=== PATIENT | female | born 1995 | race Caucasian/White ===

== ENCOUNTER → 2017-04-23 | Outpatient (CLI) | payer BC ==
[~2017-04-23] MED LIST: ADVIL200 MG PO; FEOSOL325 MG PO; FOLIC ACID 40400 MCG PO; QUASENSE 0.15-1 EACH PO; XARELTO15 MG PO; XARELTO20 MG
[2017-04-23 16:49] LABS: BASOPHIL % 0.5 %; EOSINOPHIL # 0.1 K/uL (0.0-0.5); HEMOGLOBIN 13.5 g/dL (11.0-15.0); IMMATURE GRANULOCYTE % 0.2 %; LYMPHOCYTE % 33.8 %; MCH 29.6 pg (27.0-34.0); MCHC 34.6 gm/dL (32.0-36.5); MCV 85.5 fl (83.0-98.0); MONOCYTE # 0.4 K/uL (0.0-1.0); MPV 10.6 fl (9.4-12.4); NEUTROPHIL # (ANC) 3.3 K/uL (1.8-7.8); NEUTROPHIL % 56.5 %; NRBC % 0 /100WBC (0-0.00); PLATELET COUNT 287 K/uL (150-450); RDW-CV 13.8 % (11.9-14.6); WBC 5.9 K/uL (4.0-11.0)
[2017-04-23 16:50] LABS: RBC 4.56 M/uL (3.50-5.00)
[2017-04-23 17:11] LABS: ALK PHOS 82 IU/L (33-138); ALT 18 IU/L (12-78); ANION GAP 12.9 (10.0-19.0); AST 15 IU/L (10-40); BLOOD UREA NITROGEN 12 mg/dL (6-24); CALCIUM 8.8 mg/dL (8.5-10.5); CHLORIDE 108 mMol/L (96-110); CO2 24 mMol/L (22-32); CREATININE 0.8 mg/dL (0.5-1.1); POTASSIUM 3.9 mMol/L (3.7-5.1); SODIUM 141 mMol/L (135-145); TOTAL BILIRUBIN 0.3 mg/dL (0.0-1.5); TOTAL PROTEIN 7.6 g/dL (6.0-8.4)
== END | disposition disaster alternative care site (69) ==
LOC: LNHI 16:40
PROVIDERS: Surgery Vascular Surgery
DX: Z01.818 Encounter for other preprocedural examination (principal)

== ENCOUNTER → 2017-05-06 | Day surgery (SDC) | payer BC ==
[~2017-05-06] VITALS: Ht 167.6 cm; Wt 86.8 kg
--- NOTE | ~2017-05-06 | OR ---
PATIENT'S NAME: GERTRUDIS TRINIDAD [facility] AGE: 21 Y [address] ROOM: [place] [id number] LOCATION: [facility] ADMIT DATE: 05/06/2017 OR/Procedure Report DISCHARGE DATE: FAMILY PHYSICIAN: Meg Ny MD ATTENDING PHYSICIAN: FANI GUILLORY SURGEON: Fani Guillory MD BUSSER: DATE OF PROCEDURE: 05/06/2017 PREOPERATIVE DIAGNOSIS: IVC filter no longer required. POSTOPERATIVE DIAGNOSIS: IVC filter no longer required. PROCEDURE: IVC filter removal. VICE PRESIDENT MEDICAL AFFAIRS: greenskeeper laborer staff. ANESTHESIA: MAC local. ESTIMATED BLOOD LOSS: 10 mL. OPERATIVE FINDINGS: Removal of filter from the IVC. DESCRIPTION OF PROCEDURE: The patient was brought to the laboratory animal caretaker, placed supine on the laboratory animal caretaker table, prepped and draped in a sterile manner. Preoperative time-out was performed. The patient received preoperative antibiotics. We gained access via the right internal jugular. We infiltrated the skin with 1% lidocaine and used an 18-gauge needle to gain access to the vein. We had difficulty advancing our wire, there appeared to be some significant scarring in the internal jugular vein, but the wire did eventually advance. We then placed a 5-Thai sheath for a primary access, we then exchanged it for a 10-Thai retrieval sheath. Once the retrieval sheath was below the level of the IVC filter, we then performed a venogram showing there were no clots in the filter. We then used a Tulip Lasso device to capture the filter hook. We then brought the sheath over the filter and then retracted forcefully to disengage the filter, trapping it within the sheath itself. The patient experienced no pain, no drop in blood pressure, and no significant blood loss on that site. We removed the sheath along with the filter. Filter remained intact with very minimal clot on the filter prongs. Pressure was held onto the right neck. The patient tolerated the procedure well and transferred to the recovery room and home later that day. PATIENT'S NAME: GERTRUDIS TRINIDAD [facility] AGE: 21 Y [address] ROOM: [place] [address] LOCATION: [facility] ADMIT DATE: 05/06/2017 OR/Procedure Report DISCHARGE DATE: FAMILY PHYSICIAN: Meg Ny MD ATTENDING PHYSICIAN: FANI GUILLORY MD FKM/modl /[id number] d: 05/06/17 2334 t: 05/09/17 1232, OPERATIVE SUMMARY
== END ==
LOC: GPOC 04-30 09:00 → GCAT 07:48 → GPOC 09:00
PROC: 05PY3DZ Removal of Intraluminal Device from Upper Vein, Percutaneous Approach (ICD-10-PCS; principal; 2017-05-06)
DX: Z45.2 Encounter for adjustment and management of vascular access device (principal); I82.402 Acute embolism and thrombosis of unspecified deep veins of left lower extremity; Z98.890 Other specified postprocedural states; Z79.899 Other long term (current) drug therapy
CPT/HCPCS: C1773; J0690; J1644; J2001; J2250; J3010; J7030